=== PATIENT | male | born 1940 | race Caucasian/White ===

== ENCOUNTER 2016-11-30 15:12 | Emergency (ER) | payer MEDICARE, BC ==
[2016-11-30 15:30] VITALS: BP 168/96
--- NOTE | 2016-11-30 16:20 | EDM.PDOC ---
ED HPI GENERAL MEDICAL PROBLEM - General Chief Complaint: Skin Complaint Stated Complaint: LIP PAIN [id number] Time Seen by Provider: 11/30/16 16:16 Source of Information: Reports: Patient History Limitations: Reports: No Limitations - History of Present Illness INITIAL COMMENTS - FREE TEXT/NARRATIVE: 76 yo male presents with c/o upper lip swelling and left ear pain. Denies fever , n/v/d or other complaints. Onset Date: 11/29/16 Duration: Getting Worse Location: Reports: Face Quality: Reports: Ache Severity: Mild Improves with: Reports: None Worsens with: Reports: None Associated Symptoms: Reports: No Other Symptoms - Related Data Allergies Allergy/AdvReac Type Severity Reaction Status Date / Time No Known Allergies Allergy Verified 11/30/16 15:38 Home Meds: Home Meds Ciprofloxacin HCl/Dexameth [Ciprodex Otic Suspension] 7.5 ml OT 11/30/16 [ History] Desonide [Desowen] 11/30/16 [History] Enalapril Maleate [Vasotec] 20 mg PO DAILY 11/30/16 [History] Hydrocort/Neomycin/Polymyxin B [Cortisporin Otic Soln] 11/30/16 [History] Metoprolol Succinate [Toprol XL] 100 mg PO DAILY 11/30/16 [History] RX: Aspirin [Halfprin] 81 mg PO DAILY 11/30/16 [History] RX: Sertraline [Zoloft] 200 mg PO DAILY 11/30/16 [History] RX: amLODIPine [Norvasc] 10 mg PO DAILY 11/30/16 [History] Tamsulosin [Flomax] 0.4 mg PO DAILY 11/30/16 [History] Terazosin [Hytrin] 5 mg PO DAILY 11/30/16 [History] Past Medical History Cardiovascular History: Reports: High Cholesterol, Hypertension Genitourinary History: Reports: BPH Social & Family History - Tobacco Use Smoking Status *Q: Never Smoker - Caffeine Use Caffeine Use: Reports: Coffee, Soda - Alcohol Use Days Per Week of Alcohol Use: 3 Number of Drinks Per Day: 4 Total Drinks Per Week: 12 - Recreational Drug Use Recreational Drug Use: No ED ROS GENERAL - Review of Systems Review Of Systems: ROS reveals no pertinent complaints other than HPI. ED EXAM, SKIN/RASH Exam: See Below Exam Limited By: No Limitations General Appearance: Alert, WD/WN, No Apparent Distress Eye Exam: Bilateral Eye: PERRL Ears: Other (canal and TM on left with puralent drainage) Nose: Normal Inspection, Normal Mucosa, No Blood Respiratory/Chest: No Respiratory Distress, Lungs Clear, Normal Breath Sounds, No Accessory Muscle Use, Chest Non-Tender Cardiovascular: Normal Peripheral Pulses, Regular Rate, Rhythm, No Edema, No Gallop, No JVD, No Murmur, No Rub Skin: Warm, Dry, Intact, No Rash, Increased Warmth, Other (swelling to upper lip. ) Location, Skin: Face Characteristics: Erythematous Associated features: Wwelling (indurated area to upper lip on left under nasal passage. ) Lymphatic: No Adenopathy Course - Vital Signs Last Recorded V/S: Last Vital Signs Temp 99.0 F 11/30/16 15:29 Pulse 93 11/30/16 15:29 Resp 18 11/30/16 15:29 BP 168/96 H 11/30/16 15:29 Pulse Ox 97 11/30/16 15:29 - Orders/Labs/Meds Meds: Medications Discontinued Medications Generic Name Dose Route Start Last Admin Trade Name Freq PRN Reason Stop Dose Admin Ceftriaxone Sodium 2 gm/ 0 gm 11/30/16 16:23 Lidocaine HCl 2.1 ml IM 11/30/16 16:24 ONETIME ONE Departure - Departure Time of Disposition: 16:25 Disposition: Home, Self-Care 01 Condition: Good Clinical Impression: Abscess Otitis media Qualifiers: Otitis media type: suppurative Chronicity: acute Laterality: left Recurrence: not specified as recurrent Spontaneous tympanic membrane rupture: without spontaneous rupture Qualified Code(s): H66.002 - Acute suppurative otitis media without spontaneous rupture of ear drum, left ear - Discharge Information Instructions: Abscess, Otitis Media, Adult, [id number] Forms: ED Department Discharge Additional Instructions: Keep using the drops in your ear. Follow up with your doctor in 1 week. return for any worsening symptoms.
[2016-11-30] MEDS ORDERED: cefTRIAXone 2 GM, Lidocaine 1% 2.1 ML IM ONE ×2 (16:23)
== END 2016-11-30 17:00 | disposition home or self-care (01) ==
LOC: DL.ED 15:12
DX: H66.002 Acute suppurative otitis media without spontaneous rupture of ear drum, left ear (principal); K13.0 Diseases of lips; E78.00 Pure hypercholesterolemia, unspecified; I10 Essential (primary) hypertension; Z79.899 Other long term (current) drug therapy
CPT/HCPCS: 96372; 99283; J0696